=== PATIENT | male | born 1985 | race Caucasian/White ===

== ENCOUNTER 2020-06-13 12:44 | Emergency (ER) | payer OTHER ==
[~2020-06-13] VITALS: Ht 180.3 cm; Wt 109.8 kg
[2020-06-13] MEDS ORDERED: ACETAMINOPHEN500 M2 PO (18:11)
[2020-06-13] MEDS ORDERED: ORPHENADRINE C100 MG PO (18:11)
== END 2020-06-13 18:23 | disposition home or self-care (01) ==
LOC: ER 12:44
DX: M62.830 Muscle spasm of back (principal); M25.561 Pain in right knee